=== PATIENT | female | born 1985 ===

== ENCOUNTER 2021-08-04 10:08 | Outpatient (CLI) | payer OTHER | END 2021-08-04 11:25 | disposition home or self-care (01) | LOC: PRENATAL 10:08 | PROVIDERS: ATTEND Obstetrics & Gynecology Maternal & Fetal Medicine | DX: O24.419 Gestational diabetes mellitus in pregnancy, unspecified control (principal); Z3A.32 32 weeks gestation of pregnancy ==

== ENCOUNTER 2021-09-12 18:19 | Inpatient (IN) | payer OTHER ==
[~2021-09-12] VITALS: Ht 160 cm; Wt 2.7 kg
[2021-09-12] MEDS ORDERED: PRENATAL CAPLE1 EAC1 PO (22:33)
== END 2021-09-15 16:04 | disposition home or self-care (01) | DRG 788 ==
LOC: LDR 18:19 → O/R 09-13 13:35 → OB/GYN 09-13 17:56
PROVIDERS: ADMIT Obstetrics & Gynecology; ATTEND Obstetrics & Gynecology
PROC: 4A1HXCZ Monitoring of Products of Conception, Cardiac Rate, External Approach (ICD-10-PCS; 2021-09-12)
PROC: 10D00Z1 Extraction of Products of Conception, Low, Open Approach (ICD-10-PCS; principal; 2021-09-13 13:00)
DX: O62.0 Primary inadequate contractions (principal); O24.410 Gestational diabetes mellitus in pregnancy, diet controlled; Z3A.38 38 weeks gestation of pregnancy; Z37.0 Single live birth; Z20.822 Contact with and (suspected) exposure to COVID-19